=== PATIENT | female | born 1980 | race African-American/Black ===

== ENCOUNTER 2022-02-27 21:03 | Emergency (ER) | payer MEDICAID ==
[~2022-02-27] VITALS: Ht 175.3 cm; Wt 104.5 kg
[2022-02-27 21:28] VITALS: BP 152/74
--- NOTE | 2022-02-27 21:33 | NUR ---
WALKED IN C/O PELVIC PAIN X1 WEEK AND WORSE TODAY. DENIES DYSURIA, VAGINAL BLEEDING/ DISCHARGE. DENIES N/V/D/C. PT STATES SHE HAS AN IUD IN PLACE SINCE AUGUST. LMP AUGUST 2021. PT STATES SHE TOOK MOTRIN YESTERDAY WITHOUT RELIEF PMH NONE
--- NOTE | 2022-02-27 21:49 | NUR ---
PT TAKEN TO BED 7
--- NOTE | 2022-02-27 22:03 | NUR ---
41YR OLD FEMALE BIB SELF C/O LOWER ABD PAIN X1 WEEK. CRAMPING PAIN 6/10. DENIES VAG BLEED OR VAG DISCHARGE. PT A&OX4 SKIN WARM DRY AND INTACT. URINE OBTAINED AND SENT TO LAB. BED AT LOWEST POSITION SIDE RAILS UP X2 NKDA NO HX
[2022-02-27 22:19] LABS: APPEARANCE,URINE CLEAR (CLEAR); BILIRUBIN,URINE NEGATIVE (NEGATIVE); BLOOD, URINE 3+ (NEGATIVE); COLOR,URINE YELLOW (YELLOW); LEUKOCYTE ESTERASE ,URINE NEGATIVE (NEGATIVE); NITRITE, URINE NEGATIVE (NEGATIVE); UGLUCOSE NEGATIVE (NEGATIVE)
[2022-02-27 22:29] LABS: WBC,URINE 0-5 /HPF (0-5)
[2022-02-27] MEDS ORDERED: cephALEXin 500 MG CAP PO ONE (23:00)
[2022-02-27] MEDS ORDERED: IBUPROFEN 800 MG TAB PO ONE (23:00)
[2022-02-27] MEDS ORDERED: PHEN-1877 PO (23:07)
[2022-02-27] MEDS ORDERED: CEPH500C16 PO (23:07)
[2022-02-27] MEDS ORDERED: IBUP-1878 PO (23:07)
--- NOTE | 2022-02-27 23:23 | NUR ---
Patient discharged with v/s stable. Written and verbal after care instructions given and explained. Patient alert, oriented and verbalized understanding of instructions. Ambulatory with steady gait. All questions addressed prior to discharge. ID band removed. Patient advised to follow up with PMD. Rx of KEFLEX IBUPROFEN PYRIDIUM given.
--- NOTE | 2022-02-27 23:24 | NUR ---
The patient's care was reviewed and supervised by Martha Haywood RN.
== END 2022-02-27 23:23 | disposition home or self-care (01) ==
LOC: MED 21:03
DX: N39.0 Urinary tract infection, site not specified (principal); Z79.899 Other long term (current) drug therapy
CPT/HCPCS: 81001; 81025; 87086; 99283